=== PATIENT | female | born 1955 | race Caucasian/White ===

== ENCOUNTER 2016-11-15 11:08 | Outpatient (CLI) | payer OTHER ==
[2016-11-15 11:42] LABS: CALCIUM 9.2 mg/dL (8.5-10.3); CREATININE 0.7 mg/dL (0.4-1.0); POTASSIUM 3.9 mmol/L (3.5-5.0)
== END 2016-11-15 11:09 | disposition home or self-care (01) ==
LOC: LAB 11:08
DX: E87.5 Hyperkalemia (principal)
CPT/HCPCS: 36415; 80048

== ENCOUNTER 2017-06-23 08:34 | Outpatient (CLI) | payer OTHER | END 2017-06-23 08:35 | disposition home or self-care (01) | LOC: LAB 08:34 | PROVIDERS: ATTEND Family Medicine | DX: E03.9 Hypothyroidism, unspecified (principal) | CPT/HCPCS: 36415; 84132 ==

== ENCOUNTER 2018-11-30 08:00 | Outpatient (CLI) | payer MEDICARE, OTHER ==
[2018-11-30 11:54] LABS: BASOPHILS % (AUTO) 0.3 %; EOSINOPHILS # (AUTO) 0.1 10^3/uL (0.0-0.7); EOSINOPHILS % (AUTO) 0.8 %; HGB - HEMOGLOBIN 12.5 g/dL (12.0-16.0); LYMPHOCYTES # (AUTO) 1.6 10^3/uL (1.5-3.5); LYMPHOCYTES % (AUTO) 16.4 %; MEAN CORPUSCULAR HEMOGLOBIN 29.2 pg (27.0-31.0); MEAN CORPUSCULAR HGB CONC 31.8 g/dL (32.0-36.0); MEAN CORPUSCULAR VOLUME 91.8 fL (81.0-99.0); MEAN PLATELET VOLUME 10.5 fL (7.9-10.8); MONOCYTES # (AUTO) 0.7 10^3/uL (0.0-1.0); MONOCYTES % (AUTO) 7.6 %; NEUTROPHILS % (AUTO) 74.5 %; PLT - PLATELET COUNT 296 10^3/uL (130-450); RED BLOOD COUNT 4.28 10^6/uL (4.20-5.40); WHITE BLOOD COUNT 9.4 x10^3/uL (4.8-10.8)
[2018-11-30 12:13] LABS: ALBUMIN 3.9 g/dL (3.2-5.5); ALBUMIN/GLOBULIN RATIO 1.3 (1.0-2.2); ALKALINE PHOSPHATASE 46 IU/L (42-121); ALT ALANINE AMINOTRANSFERASE 20 IU/L (10-60); AST ASPARTATE AMINOTRANSFERASE 21 IU/L (10-42); BUN - BLOOD UREA NITROGEN 12 mg/dL (6-20); CALCIUM 8.9 mg/dL (8.5-10.3); CARBON DIOXIDE - CO2 28 mmol/L (21-32); CHLORIDE 99 mmol/L (101-111); CHOL/HDL RATIO 3.6 (<4.4); CHOLESTEROL 211 mg/dL; CREATININE 0.5 mg/dL (0.4-1.0); GFR - MDRD 124 (>89); GLUCOSE 94 mg/dL (70-100); HDL CHOLESTEROL 59 mg/dL; LDL CHOLESTEROL,CALCULATED 135 mg/dL; LDL/HDL RATIO 2.3 (<4.4); SODIUM 135 mmol/L (135-145); TOTAL PROTEIN 6.8 g/dL (6.7-8.2); VLDL CHOLESTEROL 17 mg/dL
[2018-11-30 13:26] LABS: HB2 TOTAL 13.4 g/dL; HEMOGLOBIN A1C 0.52 g/dL; HEMOGLOBIN A1C % 5.7 % (4.6-6.2)
== END 2018-11-30 23:59 | disposition home or self-care (01) ==
LOC: LAB.WCP 08:00
PROVIDERS: ATTEND Physician Assistant
DX: E03.9 Hypothyroidism, unspecified (principal); E78.5 Hyperlipidemia, unspecified; R73.03 Prediabetes; I10 Essential (primary) hypertension
CPT/HCPCS: 36415; 80053; 80061; 83036; 83721; 84443; 85025

== ENCOUNTER 2019-01-01 09:53 | Outpatient (CLI) | payer MEDICARE, OTHER ==
--- NOTE | 2019-01-09 13:22 | Mammography Report ---
Reason: ROUTINE MAMMO Procedure Date: 01/01/2019 Accession Number: [id number] / [id number] Procedure: MGN - Screening Mammo Dig Bilat CPT Code: Final Report FULL RESULT: EXAM: Screening Mammo Dig Bilat DATE: 01/01/2019 10:17 AM CLINICAL HISTORY: The patient is an asymptomatic 63 year-old female presenting for screening mammography. No reported family history of breast cancer. Prior history of a benign right breast excisional biopsy. TECHNIQUE: (B) - Bilateral CC and MLO views were obtained. COMPARISON: None PARENCHYMAL PATTERN: (A) - The breasts demonstrate scattered fibroglandular densities bilaterally. FINDINGS: Nonspecific glandular asymmetry. Postbiopsy changes noted in the 12:00 posterior position. There are no suspicious masses, calcifications, or areas of distortion. IMPRESSION: Benign findings. BI-RADS category 2. RECOMMENDATION: (ANNUAL) - Recommend routine annual screening mammography. Note: An addendum with updated recommendations will be issued if comparison mammograms become available for review. BI-RADS CATEGORY: (2) - Benign Findings. STANDARD QUALIFYING STATEMENTS: 1. This examination was not reviewed with the aid of Computer-Aided Detection (CAD). 2. A negative or benign imaging report should not preclude biopsy if clinically suspicious findings are present. 3. Dense breasts may obscure an underlying neoplasm. 4. This examination was reviewed the aid of 3D breast imaging (tomosynthesis).
== END 2019-01-01 09:54 | disposition home or self-care (01) ==
LOC: DI.N 09:53
DX: Z12.31 Encounter for screening mammogram for malignant neoplasm of breast (principal)
CPT/HCPCS: 77067

== ENCOUNTER 2019-02-03 07:45 | Outpatient (CLI) | payer MEDICARE, OTHER ==
--- NOTE | 2019-02-04 09:11 | Ultrasound Report ---
Reason: ABD PAIN RUQ, LUQ Procedure Date: 02/03/2019 Accession Number: [id number] / [id number] Procedure: US - Abdomen Complete CPT Code: Final Report FULL RESULT: EXAM: ABDOMEN ULTRASOUND EXAM DATE: 02/03/2019 08:16 AM. CLINICAL HISTORY: Abdominal pain right upper quadrant, left lower quadrant. COMPARISON: None. TECHNIQUE: Real-time scanning was performed with static images obtained. FINDINGS: Liver: Liver parenchyma is heterogeneous and mildly hyperechoic. No discrete liver masses or intrahepatic bile duct dilation. However, evaluation for masses is limited secondary to the echogenicity. Right liver measures 13.7 cm. Main portal vein flow: Hepatopetal. Gallbladder: Surgically absent. Biliary System: Common bile duct measures 4 mm. No intrahepatic or extrahepatic ductal dilatation. Pancreas: Distal pancreas not well-seen. Limitations secondary to bowel gas. Remaining pancreas unremarkable. Kidneys: Right: 10.4 cm longitudinally. Normal. No contour-deforming mass, stones, or hydronephrosis. Left: 10.5 cm longitudinally. Normal. No contour-deforming mass, stones, or hydronephrosis. Spleen: 9.2 x 2.6 x 8.6 cm. Normal in size and echotexture. Aorta and Inferior Vena Cava: Unremarkable. Other: None. IMPRESSION: 1. No liver mass or intrahepatic dilation.Mildly echogenic probably fatty liver. 2. Surgically absent gallbladder. Normal common bile duct. 3. Limited visualization of the distal pancreas. Given the limitations, remaining pancreas is grossly unremarkable. RADIA
== END 2019-02-03 07:46 | disposition home or self-care (01) ==
LOC: DI 07:45
PROVIDERS: ATTEND Nurse Practitioner Family
DX: R10.12 Left upper quadrant pain (principal); R10.11 Right upper quadrant pain; Z90.49 Acquired absence of other specified parts of digestive tract
CPT/HCPCS: 76700

== ENCOUNTER 2019-07-17 08:00 | Outpatient (CLI) | payer MEDICARE, OTHER ==
[2019-07-17 12:07] LABS: BASOPHILS % (AUTO) 0.3 %; EOSINOPHILS # (AUTO) 0.1 10^3/uL (0.0-0.7); EOSINOPHILS % (AUTO) 1.3 %; HGB - HEMOGLOBIN 12.6 g/dL (12.0-16.0); LYMPHOCYTES # (AUTO) 1.5 10^3/uL (1.5-3.5); LYMPHOCYTES % (AUTO) 23.5 %; MEAN CORPUSCULAR HEMOGLOBIN 28.6 pg (27.0-31.0); MEAN CORPUSCULAR HGB CONC 31.2 g/dL (32.0-36.0); MEAN CORPUSCULAR VOLUME 91.8 fL (81.0-99.0); MEAN PLATELET VOLUME 11.3 fL (7.9-10.8); MONOCYTES # (AUTO) 0.7 10^3/uL (0.0-1.0); MONOCYTES % (AUTO) 11.5 %; NEUTROPHILS # (AUTO) 3.9 10^3/uL (1.5-6.6); NEUTROPHILS % (AUTO) 63.2 %; PLT - PLATELET COUNT 289 10^3/uL (130-450); RED CELL DISTRIBUTION WIDTH 12.9 % (12.0-15.0); WHITE BLOOD COUNT 6.2 x10^3/uL (4.8-10.8)
[2019-07-17 12:27] LABS: ALBUMIN/GLOBULIN RATIO 1.3 (1.0-2.2); ALKALINE PHOSPHATASE 55 IU/L (42-121); ALT ALANINE AMINOTRANSFERASE 17 IU/L (10-60); AST ASPARTATE AMINOTRANSFERASE 20 IU/L (10-42); BILIRUBIN,TOTAL 1.2 mg/dL (0.2-1.0); BUN - BLOOD UREA NITROGEN 10 mg/dL (6-20); CALCIUM 9.1 mg/dL (8.5-10.3); CARBON DIOXIDE - CO2 26 mmol/L (21-32); CHLORIDE 102 mmol/L (101-111); CHOL/HDL RATIO 3.2 (<4.4); CHOLESTEROL 197 mg/dL; CREATININE 0.5 mg/dL (0.4-1.0); GLUCOSE 91 mg/dL (70-100); HDL CHOLESTEROL 62 mg/dL; LDL CHOLESTEROL,CALCULATED 118 mg/dL; LDL/HDL RATIO 1.9 (<4.4); SODIUM 137 mmol/L (135-145); TOTAL PROTEIN 7.1 g/dL (6.7-8.2); VLDL CHOLESTEROL 17 mg/dL
== END 2019-07-17 23:59 | disposition home or self-care (01) ==
LOC: LAB.WCP 08:00
PROVIDERS: ATTEND Nurse Practitioner Family
DX: E03.9 Hypothyroidism, unspecified (principal); E78.5 Hyperlipidemia, unspecified; R03.0 Elevated blood-pressure reading, without diagnosis of hypertension; R73.03 Prediabetes
CPT/HCPCS: 36415; 80053; 80061; 83721; 84443; 85025

== ENCOUNTER 2019-10-09 11:28 | Emergency (ER) | payer MEDICARE, OTHER ==
[2019-10-09] MEDS ORDERED: SODIUM CHLORIDE 0.9% 1,000 ML IV STA (11:43)
[2019-10-09] MEDS ORDERED: ONDANSETRON 4 MG/2 ML VIAL IVP STA (11:43)
[2019-10-09 11:57] LABS: BASOPHILS % (AUTO) 0.2 %; EOSINOPHILS % (AUTO) 0.2 %; HGB - HEMOGLOBIN 13.2 g/dL (12.0-16.0); LYMPHOCYTES % (AUTO) 11.9 %; MEAN CORPUSCULAR HEMOGLOBIN 30.3 pg (27.0-31.0); MEAN CORPUSCULAR HGB CONC 34.1 g/dL (32.0-36.0); MEAN CORPUSCULAR VOLUME 88.8 fL (81.0-99.0); MEAN PLATELET VOLUME 10.2 fL (7.9-10.8); MONOCYTES # (AUTO) 0.4 10^3/uL (0.0-1.0); MONOCYTES % (AUTO) 4.5 %; NEUTROPHILS # (AUTO) 7.2 10^3/uL (1.5-6.6); NEUTROPHILS % (AUTO) 82.7 %; PLT - PLATELET COUNT 280 10^3/uL (130-450); RED BLOOD COUNT 4.36 10^6/uL (4.20-5.40); RED CELL DISTRIBUTION WIDTH 12.5 % (12.0-15.0); WHITE BLOOD COUNT 8.7 x10^3/uL (4.8-10.8)
[2019-10-09] MEDS ORDERED: MECLIZINE 12.5 MG TABLET PO STA (12:06)
--- NOTE | 2019-10-09 12:11 | ED Physician Documentation ---
History of Present Illness - Stated complaint Stated Complaint: DIZZY/NAUSEA/DRY HEAVES - Chief complaint Chief Complaint: Neuro - History of Present Illness Timing: Prior to arrival, How many hours ago (5) - Additonal information Additional information: 63-year-old female presents to the emergency department for evaluation of vertigo and nausea. She reports that this morning she got up to do her normal morning workout on the treadmill. Shortly after she finished the workout she bent over to massage her calf as she had developed a cramp andimmediately became very dizzy (sensation of head spinning) and was nauseated and has had multiple episodes of dry heaves and vomiting since then. She denies any chest pain or shortness of breath. She denies any slurred speech facial droop. She is able to make the dizziness occur when turning her head to the right. She denies any recent sick contacts or illness. Patient denies any tinnitus or unilateral hearing loss. She denies any neck pain. Patient reports that the dizziness feels like the room is spinning. It typically lasts a few seconds to less than a minute but it is associated with pretty significant nausea. Patient reports that she did have vertigo many years ago that was worked up [facility] and was ultimately negative for any concerning findings She denies any abdominal pain, chest pain, dysuria. Past surgical history includes surgery for a bowel obstruction, a Roberto procedure for acid reflux. Social; non-smoker rare occasional alcohol. Meds omeprazole, Inderal, Review of Systems Constitutional: denies: Fever, Chills Eyes: denies: Loss of vision, Decreased vision, Photophobia Ears: denies: Loss of hearing, Drainage/discharge, Tinnitus/ringing, Foreign body Nose: denies: Rhinorrhea / runny nose, Congestion Throat: denies: Oral lesions / sores, Sore throat Cardiac: denies: Chest pain / pressure, Palpitations Respiratory: denies: Dyspnea, Cough GI: reports: Nausea, Vomiting. 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 : None HEENT: Chronic vision loss Psych: None Musculoskeletal: Other Derm: None - Past Surgical History Past Surgical History: 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: Hysterectomy, Oophrectomy - Present Medications Home Medications: Ambulatory Orders Medication Instructions Recorded Confirmed Ascorbic Acid [Vitamin C] 1,000 mg PO DAILY 06/26/15 07/04/15 Calcium Carbonate/Vitamin D3 1 each PO DAILY 06/26/15 07/04/15 [Calcium 500 + Vit D Caplet] Cetirizine [ZyrTEC] 10 mg PO DAILY 06/26/15 06/26/15 Cyanocobalamin (Vitamin B-12) 2,500 mcg PO DAILY 06/26/15 07/04/15 [Vitamin B12] Fluticasone Propionate [Flonase 15.8 ml NS DAILY 06/26/15 07/04/15 Allergy Relief] Ibuprofen [Motrin] 800 mg PO Q8H PRN 06/26/15 06/26/15 Levothyroxine [Synthroid] 125 mcg PO QDAC 06/26/15 07/04/15 Magnesium 250 mg PO DAILY 06/26/15 07/04/15 Multivitamin [Multivitamins] 1 each PO DAILY 06/26/15 07/04/15 Brunswick-3 Fatty Acids [Fish Oil] 300 mg PO DAILY 06/26/15 07/04/15 Omeprazole 40 mg PO DAILY 06/26/15 07/04/15 Propranolol ER [Inderal LA] 80 mg PO BID 06/26/15 07/04/15 Psyllium Husk [Metamucil] 425 gm PO DAILY 06/26/15 07/04/15 Sumatriptan Succinate [Imitrex] 50 mg PO DAILY 06/26/15 07/04/15 - Allergies Allergies/Adverse Reactions: Allergies Allergy/AdvReac Type Severity Reaction Status Date / Time guaifenesin [From Entex LA] Allergy Respiratory Verified 06/26/15 12:07 phenylephrine HCl * Allergy Respiratory Verified 06/26/15 12:07 [From Entex LA] phenylpropanolamine HCl * Allergy Respiratory Verified 06/26/15 12:07 [From Entex LA] Sulfa (Sulfonamide Allergy Respiratory Verified 06/26/15 12:07 Antibiotics) - Social History Does the pt smoke?: No Smoking Status: Never smoker Does the pt drink ETOH?: No Does the pt have substance abuse?: No - Immunizations Immunizations are current?: Yes PD ED PE EXPANDED - General General: Alert, No acute distress, Well developed/nourished - HEENT HEENT: Atraumatic, PERRL, EOMI, Ears normal (No TM effusions.), Other (Unable to induce any nystagmus in either the vertical or lateral positions). No: Pupils unequal - Eyes Eyes: PERRL, Normal accommodation - Neck Neck: Supple w/out meningeal sx, No tenderness - Cardiac Cardiac: Regular Rate, Regular Rhythm, Radial strong equal, Pedal strong equal, Cap refill < 2 sec. No: Murmur Present - Respiratory Respiratory: Clear to ausultation stephanie. No: Distress, Labored, Stridor - Abdomen Abdomen: Hyperactive BS. No: Tender to palpation - Back Back: Normal exam. No: Vertebral tenderness - Derm Derm: Normal color, Warm and dry, Pale. No: Rash - Neuro Neuro: Alert and Oriented X 3, CNII-XII intact, PERRL, Cerebellar nl, Normal gait, Normal finger nose, Normal speech. No: Nystagmus - GCS Eye Opening: Spontaneous Motor: Obeys Commands Verbal: Oriented Total: 15 Results - Vitals Vitals: Vital Signs - 24 hr 10/09/19 11:30 Temperature 36.6 C Heart Rate 59 L Respiratory 12 Rate Blood Pressure 174/68 H O2 Saturation 100 Oxygen O2 Source Room air - EKG (time done) 1204 Rate: Rate (enter#) (56) Rhythm: NSR T[place]en: Normal Intervals: Normal NM QRS: Normal Ischemia: Normal ST segments Compare to prior EKG: Old EKG unavailable Computer interpretation: Agree with computer - Labs Labs: Laboratory Tests 10/09/19 10/09/19 10/09/19 11:47 11:47 11:47 WBC 8.7 RBC 4.36 Hgb 13.2 Hct 38.7 MCV 88.8 MCH 30.3 MCHC 34.1 RDW 12.5 Plt Count 280 MPV 10.2 Neut # (Auto) 7.2 H Lymph # (Auto) 1.0 L Cloud # (Auto) 0.4 Eos # (Auto) 0.0 Baso # (Auto) 0.0 Absolute Nucleated RBC 0.00 Nucleated RBC % 0.0 Sodium 130 L Potassium 4.2 Chloride 95 L Carbon Dioxide 25 Anion Gap 10.0 BUN 9 Creatinine 0.5 Estimated GFR (MDRD) 124 Glucose 131 H Calcium 9.2 Total Bilirubin 1.1 H AST 20 ALT 18 Alkaline Phosphatase 57 Troponin I High Sens 5.6 Total Protein 7.0 Albumin 4.1 Globulin 2.9 Albumin/Globulin Ratio 1.4 Lipase 33 Urine Color Urine Clarity Urine pH Ur Specific [place] Urine Protein Urine Glucose (UA) Urine Ketones Urine Occult Blood Urine Nitrite Urine Bilirubin Urine Urobilinogen Ur Leukocyte Esterase Ur Microscopic Review Urine Culture Comments 10/09/19 12:52 WBC RBC Hgb Hct MCV MCH MCHC RDW Plt Count MPV Neut # (Auto) Lymph # (Auto) Cloud # (Auto) Eos # (Auto) Baso # (Auto) Absolute Nucleated RBC Nucleated RBC % Sodium Potassium Chloride Carbon Dioxide Anion Gap BUN Creatinine Estimated GFR (MDRD) Glucose Calcium Total Bilirubin AST ALT Alkaline Phosphatase Troponin I High Sens Total Protein Albumin Globulin Albumin/Globulin Ratio Lipase Urine Color YELLOW Urine Clarity CLEAR Urine pH 6.0 Ur Specific [place] <=1.005 Urine Protein NEGATIVE Urine Glucose (UA) NEGATIVE Urine Ketones TRACE Urine Occult Blood NEGATIVE Urine Nitrite NEGATIVE Urine Bilirubin NEGATIVE Urine Urobilinogen 0.2 (NORMAL) Ur Leukocyte Esterase NEGATIVE Ur Microscopic Review NOT INDICATED Urine Culture Comments NOT INDICATED PD MEDICAL DECISION MAKING - ED course Complexity details: reviewed results, re-evaluated patient, considered differential, d/w patient ED course: 63-year-old female presents to the emergency department for for evaluation of acute onset vertigo and nausea. - This vertigo certainly seems very positional will and is fatigable. I was able to induce the vertigo with rotation of her head to the right. The sensation lasted perhaps 10 seconds before it fully abated. My suspicion for a central etiology is very low. She has no nystagmus her cerebellar exam is normal and she does not have a pre-existing history of hypertension, coronary artery disease nor she had tobacco user. - This current episode of vertigo occurred when she bent over after feeling a cramp in her leg. On laboratory exam it should be noted that she is mildly hyponatremic with a serum sodium of 130 mEq/L. Today in the emergency department she was given 1 full liter of normal saline. This should correct her serum sodium closer to 135. Patient does report to me that she drinks a lot of water in an effort to make sure that she is well-hydrated and as a consequence pees "all day long" This may be contributing to her hyponatremia. - her urine today showed no sign of infection. The urine osm is noted to be low - Her ECG is sins. non ischemic. High sensitivity troponin is negative. - I have advised pt to have very close f/u with her pcp in the next 3-4 days for sodium recheck. Emergent return precautions discussed for worsening vertigo, muscle cramps or uncontrolled vomiting Departure - Departure Disposition: Home, Self Care Clinical Impression: Vertigo, Hyponatremia Condition: Stable Record reviewed to determine appropriate education?: Yes Instructions: ED Hyponatremia, ED Vertigo Unspecified Follow-Up: Evette Pendleton PA [Primary Care Provider] - Comments: I hope you are feeling better soon. The labs today show that you are mildly hypnatremic (130 mg/dl). This is likely contributing to you vertigo and the muscle cramps you had this morning. You were given IVF here in the ED that should correct your sodium to a normal level. However you should see your primary doctor in follow up and your labs should be repeated in 3-4 days. Excessive water intake (in an attempt to stay hydrated) can be a cause of your lower sodium levels. I advise that you reduce your water intake to no more mares 2 liters of water a day. IF at any point your cramps return, your dizziness worsens, you have uncontrolled vomiting, please return to the emergency department
[2019-10-09 12:21] LABS: ALBUMIN 4.1 g/dL (3.2-5.5); ALBUMIN/GLOBULIN RATIO 1.4 (1.0-2.2); BILIRUBIN,TOTAL 1.1 mg/dL (0.2-1.0); CALCIUM 9.2 mg/dL (8.5-10.3); CREATININE 0.5 mg/dL (0.4-1.0)
[2019-10-09 13:27] LABS: BILIRUBIN,URINE NEGATIVE (NEGATIVE); GLUCOSE, URINE (UA) NEGATIVE (NEGATIVE); KETONES,URINE (UA) TRACE mg/dL (NEGATIVE); LEUKOCYTE ESTERASE, URINE NEGATIVE (NEGATIVE); NITRITE,URINE NEGATIVE (NEGATIVE); OCCULT BLOOD,URINE NEGATIVE (NEGATIVE); PROTEIN,URINE NEGATIVE (NEGATIVE); UROBILINOGEN,URINE 0.2 (NORMAL) E.U./dL (NORMAL)
[2019-10-09 13:28] LABS: CLARITY,URINE CLEAR (CLEAR)
[2019-10-09 13:51] VITALS: BP 125/55
== END 2019-10-09 13:51 | disposition home or self-care (01) ==
LOC: ED 11:28
DX: R42 Dizziness and giddiness (principal); E87.1 Hypo-osmolality and hyponatremia
CPT/HCPCS: 36415; 80053; 81003; 83690; 84484; 85025; 93005; 96361; 96374; 99283; 99284; A9270; 81001; 87086

== ENCOUNTER 2019-10-16 07:02 | Outpatient (CLI) | payer MEDICARE, OTHER ==
[2019-10-16 12:29] LABS: CALCIUM 9.1 mg/dL (8.5-10.3); CREATININE 0.6 mg/dL (0.4-1.0)
== END 2019-10-16 07:03 | disposition home or self-care (01) ==
LOC: LAB.WCP 07:02
PROVIDERS: ATTEND Family Medicine
DX: E87.1 Hypo-osmolality and hyponatremia (principal); H53.9 Unspecified visual disturbance
CPT/HCPCS: 36415; 80048; 85651; 86140

== ENCOUNTER 2019-12-17 10:02 | Outpatient (CLI) | payer MEDICARE, OTHER ==
--- NOTE | 2019-12-19 16:33 | Mammography Report ---
BILATERAL DIGITAL SCREENING MAMMOGRAM 3D/2D: 12/17/2019 CLINICAL: Routine screening. Routine screening. Comparison is made to exams dated: 01/01/2019 mammogram - [facility] and mammogram - [facility]. There are scattered fibroglandular elements in both breasts . No significant masses, calcifications, or other findings are seen in either breast. There has been no significant interval change. IMPRESSION: NEGATIVE There is no mammographic evidence of malignancy. A 1 year screening mammogram is recommended. This exam was interpreted at Station ID: [id number]. NOTE: For mammograms, a report in lay terms will be sent to the patient. Approximately 15% of breast malignancies will not be visualized mammographically. In the management of a palpable breast mass, a negative mammogram must not discourage biopsy of a clinically suspicious lesion. Electronically Signed By: Antony [email or web address]:12/18/2019 16:09:56 ACR BI-RADS Category 1: Negative 3341F PARENCHYMAL PATTERN: (A) - The breast(s) demonstrate(s) scattered fibroglandular densities. BI-RADS CATEGORY: (1) - 1 RECOMMENDATION: (ANNUAL) - Recommend routine annual screening mammography. 20201217 1 year screening LATERALITY: (B)
== END 2019-12-17 10:03 | disposition home or self-care (01) ==
LOC: DI.N 10:02
DX: Z12.31 Encounter for screening mammogram for malignant neoplasm of breast (principal)
CPT/HCPCS: 77063; 77067

== ENCOUNTER → 2019-12-28 | Outpatient (CLI) | payer MEDICARE, OTHER ==
[2019-12-28 16:03] LABS: CALCIUM 9.3 mg/dL (8.5-10.3); CREATININE 0.6 mg/dL (0.4-1.0)
== END ==
LOC: LAB.N 11:35
PROVIDERS: ATTEND Family Medicine
DX: R30.0 Dysuria (principal)
CPT/HCPCS: 80048

== ENCOUNTER 2020-01-18 08:00 | Outpatient (CLI) | payer MEDICARE, OTHER ==
[2020-01-18 18:05] LABS: BASOPHILS % (AUTO) 0.3 %; EOSINOPHILS % (AUTO) 0.5 %; HGB - HEMOGLOBIN 12.5 g/dL (12.0-16.0); LYMPHOCYTES # (AUTO) 1.6 10^3/uL (1.5-3.5); MEAN CORPUSCULAR HEMOGLOBIN 29.3 pg (27.0-31.0); MEAN CORPUSCULAR HGB CONC 31.2 g/dL (32.0-36.0); MEAN CORPUSCULAR VOLUME 93.9 fL (81.0-99.0); MEAN PLATELET VOLUME 11.2 fL (7.9-10.8); MONOCYTES # (AUTO) 0.8 10^3/uL (0.0-1.0); MONOCYTES % (AUTO) 12.1 %; NEUTROPHILS % (AUTO) 61.9 %; PLT - PLATELET COUNT 293 10^3/uL (130-450); RED BLOOD COUNT 4.27 10^6/uL (4.20-5.40); RED CELL DISTRIBUTION WIDTH 12.9 % (12.0-15.0); WHITE BLOOD COUNT 6.5 x10^3/uL (4.8-10.8)
[2020-01-18 19:01] LABS: ALBUMIN 4.1 g/dL (3.2-5.5); ALBUMIN/GLOBULIN RATIO 1.3 (1.0-2.2); ALKALINE PHOSPHATASE 49 IU/L (42-121); ALT ALANINE AMINOTRANSFERASE 15 IU/L (10-60); AST ASPARTATE AMINOTRANSFERASE 17 IU/L (10-42); BILIRUBIN,TOTAL 0.8 mg/dL (0.2-1.0); BUN - BLOOD UREA NITROGEN 9 mg/dL (6-20); CALCIUM 9.4 mg/dL (8.5-10.3); CARBON DIOXIDE - CO2 28 mmol/L (21-32); CHLORIDE 104 mmol/L (101-111); CHOL/HDL RATIO 3.5 (<4.4); CHOLESTEROL 184 mg/dL; CREATININE 0.5 mg/dL (0.4-1.0); GLUCOSE 85 mg/dL (70-100); HDL CHOLESTEROL 53 mg/dL; LDL CHOLESTEROL,CALCULATED 117 mg/dL; LDL/HDL RATIO 2.2 (<4.4); SODIUM 141 mmol/L (135-145); TOTAL PROTEIN 7.2 g/dL (6.7-8.2); VLDL CHOLESTEROL 14 mg/dL
[2020-01-18 19:31] LABS: HEMOGLOBIN A1c% 5.5 % (4.27-6.07)
[2020-01-18 19:52] LABS: FREE T4 (FREE THYROXINE) 1.75 ng/dL (0.58-1.64)
== END 2020-01-18 23:59 | disposition home or self-care (01) ==
LOC: LAB.WCP 08:00
PROVIDERS: ATTEND Physician Assistant
DX: E87.1 Hypo-osmolality and hyponatremia (principal); R73.03 Prediabetes; E78.5 Hyperlipidemia, unspecified; E03.9 Hypothyroidism, unspecified
CPT/HCPCS: 36415; 80053; 80061; 83036; 83721; 84439; 84443; 85025

== ENCOUNTER 2020-02-14 10:04 | Outpatient (CLI) | payer MEDICARE, OTHER | END 2020-02-14 10:05 | disposition home or self-care (01) | LOC: LAB 10:04 | PROVIDERS: ATTEND Physician Assistant | DX: Z01.812 Encounter for preprocedural laboratory examination (principal); Z20.828 Contact with and (suspected) exposure to other viral communicable diseases | CPT/HCPCS: 86769 ==

== ENCOUNTER 2020-02-19 09:44 | Outpatient (CLI) | payer MEDICARE, OTHER ==
[2020-02-19 15:26] LABS: FREE T4 (FREE THYROXINE) 2.37 ng/dL (0.58-1.64)
== END 2020-02-19 23:59 | disposition home or self-care (01) ==
LOC: LAB.WCP 09:44
PROVIDERS: ATTEND Physician Assistant
DX: E03.9 Hypothyroidism, unspecified (principal)
CPT/HCPCS: 36415; 84439; 84443

== ENCOUNTER 2020-03-21 | Outpatient (CLI) | payer MEDICARE, OTHER | END 2020-03-21 08:11 | disposition home or self-care (01) | CPT/HCPCS: 94010; 94729 ==

== ENCOUNTER 2020-03-21 08:08 | Outpatient (CLI) | payer MEDICARE, OTHER ==
--- NOTE | 2020-03-21 09:05 | DEXA Report ---
PROCEDURE: Dexa Spine and/or Hip INDICATIONS: POST MENOPAUSAL TECHNIQUE: Dual energy x-ray absorptiometry (DXA) was performed on a [employer] System. Regions measur ed are the AP Spine, femoral neck, and if needed forearm. COMPARISON: None. FINDINGS: Lumbar Spine: Bone Mineral Density 1.104 g/cm/cm,T score -0.6, Left Hip: Bone Mineral Density 0.71 to g/cm/cm,T score -2.3, Left Femoral Neck: Bone Mineral Density 0.695 g/cm/cm, T score -2.5, (T score greater or equal to -1.0: NORMAL) (T score from -1.1 to -2.4: OSTEOPENIA) (T score less than or equal to -2.5 to: OSTEOPOROSIS) Impression: Osteoporosis. Patients with diagnosis of osteoporosis or osteopenia should have regular bone mineral density assess ment. For those eligible for Medicare, routine testing is allowed once every 2 years. Testing frequ ency can be increased for patients who have rapidly progressing disease or for those who are receivin g medical therapy to restore bone mass. Reviewed by: Juan C Escalera MD on 03/21/2020 8:04 AM [place] Approved by: Juan C Escalera MD on 03/21/2020 8:04 AM [facility] Station ID: [id number]
== END 2020-03-21 08:09 | disposition home or self-care (01) ==
LOC: DI 08:08
PROVIDERS: ATTEND Internal Medicine
DX: M81.0 Age-related osteoporosis without current pathological fracture (principal); Z78.0 Asymptomatic menopausal state; J38.3 Other diseases of vocal cords; R05 Cough
CPT/HCPCS: 94010; 94729

== ENCOUNTER 2020-04-07 07:11 | Outpatient (CLI) | payer MEDICARE, OTHER ==
[2020-04-07 12:43] LABS: THYROID STIMULATING HORMONE < 0.08 uIU/mL (0.34-5.60)
[2020-04-07 12:45] LABS: FREE T3 3.07 pg/mL (2.5-3.9); FREE T4 (FREE THYROXINE) 1.51 ng/dL (0.58-1.64)
[2020-04-09 15:51] LABS: THYROGLOBULIN 2.5 ng/mL
== END 2020-04-07 23:59 | disposition home or self-care (01) ==
LOC: LAB.WCP 07:11
PROVIDERS: ATTEND Internal Medicine
DX: R94.6 Abnormal results of thyroid function studies (principal)
CPT/HCPCS: 36415; 81599; 83520; 84432; 84439; 84443; 84481; 86800

== ENCOUNTER 2020-06-30 08:00 | Outpatient (CLI) | payer MEDICARE, OTHER ==
[2020-06-30 19:08] LABS: THYROID STIMULATING HORMONE 0.6 uIU/mL (0.34-5.60)
[2020-06-30 19:10] LABS: FREE T3 3.04 pg/mL (2.5-3.9); FREE T4 (FREE THYROXINE) 1.14 ng/dL (0.58-1.64)
== END 2020-06-30 23:59 | disposition home or self-care (01) ==
LOC: LAB.WCP 08:00
PROVIDERS: ATTEND Internal Medicine
DX: R94.6 Abnormal results of thyroid function studies (principal)
CPT/HCPCS: 36415; 84439; 84443; 84481

== ENCOUNTER 2020-10-28 08:00 | Outpatient (CLI) | payer MEDICARE, OTHER ==
[2020-10-28 12:50] LABS: THYROID STIMULATING HORMONE 9.39 uIU/mL (0.34-5.60)
[2020-10-28 12:51] LABS: FREE T3 2.81 pg/mL (2.5-3.9)
[2020-10-28 12:52] LABS: FREE T4 (FREE THYROXINE) 1.05 ng/dL (0.58-1.64)
== END 2020-10-28 23:59 | disposition home or self-care (01) ==
LOC: LAB.WCP 08:00
PROVIDERS: ATTEND Internal Medicine
DX: R94.6 Abnormal results of thyroid function studies (principal)
CPT/HCPCS: 36415; 84439; 84443; 84481

== ENCOUNTER 2020-12-17 12:27 | Outpatient (CLI) | payer MEDICARE, OTHER ==
--- NOTE | 2020-12-23 13:48 | Mammography Report ---
BILATERAL DIGITAL SCREENING MAMMOGRAM 3D/2D: 12/17/2020 CLINICAL: Routine screening. Comparison is made to exams dated: 12/17/2019 mammogram, 01/01/2019 mammogram - [facility], 12/30/2017 mammogram - [facility], 12/30/2016 mammogram, 12/23/2015 mammogram, and 12/24/2014 mammogram - [facility]. There are scattered fibroglandular element s in both breasts. No significant masses, calcifications, or other findings are seen in either breast. There has been no significant interval change. IMPRESSION: NEGATIVE There is no mammographic evidence of malignancy. A 1 year screening mammogram is recommended. This exam was interpreted at Station ID: [id number]. NOTE: For mammograms, a report in lay terms will be sent to the patient. Approximately 15% of breast malignancies will not be visualized mammographically. In the management of a palpable breast mass, a negative mammogram must not discourage biopsy of a clinically suspicious lesion. Electronically Signed By: Bryan Phoenix M.D. [email or web address]:12/22/2020 16:20:50 ACR BI-RADS Category 1: Negative 3341F PARENCHYMAL PATTERN: (A) - The breast(s) demonstrate(s) scattered fibroglandular densities. BI-RADS CATEGORY: (1) - 1 RECOMMENDATION: (ANNUAL) - Recommend routine annual screening mammography. 20211218 1 year screening LATERALITY: (B)
== END 2020-12-17 12:28 | disposition home or self-care (01) ==
LOC: DI.N 12:27
DX: Z12.31 Encounter for screening mammogram for malignant neoplasm of breast (principal)

== ENCOUNTER 2021-01-27 08:00 | Outpatient (CLI) | payer MEDICARE, OTHER ==
[2021-01-27 12:38] LABS: THYROID STIMULATING HORMONE 2.17 uIU/mL (0.34-5.60)
[2021-01-27 12:40] LABS: FREE T4 (FREE THYROXINE) 1.5 ng/dL (0.58-1.64)
== END 2021-01-27 23:59 | disposition home or self-care (01) ==
LOC: LAB.WCP 08:00
PROVIDERS: ATTEND Internal Medicine
DX: E03.9 Hypothyroidism, unspecified (principal)
CPT/HCPCS: 36415; 84439; 84443

== ENCOUNTER 2021-02-23 08:00 | Outpatient (CLI) | payer MEDICARE, OTHER ==
[2021-02-23 11:49] LABS: BASOPHILS % (AUTO) 0.5 %; EOSINOPHILS # (AUTO) 0.1 10^3/uL (0.0-0.7); EOSINOPHILS % (AUTO) 0.9 %; HCT - HEMATOCRIT 41.1 % (37.0-47.0); HGB - HEMOGLOBIN 13.4 g/dL (12.0-16.0); LYMPHOCYTES # (AUTO) 1.7 10^3/uL (1.5-3.5); LYMPHOCYTES % (AUTO) 28.6 %; MEAN CORPUSCULAR HGB CONC 32.6 g/dL (32.0-36.0); MEAN CORPUSCULAR VOLUME 91.9 fL (81.0-99.0); MEAN PLATELET VOLUME 11.1 fL (7.9-10.8); MONOCYTES # (AUTO) 0.6 10^3/uL (0.0-1.0); MONOCYTES % (AUTO) 10.7 %; NEUTROPHILS # (AUTO) 3.4 10^3/uL (1.5-6.6); NEUTROPHILS % (AUTO) 59.1 %; PLT - PLATELET COUNT 267 10^3/uL (130-450); RED BLOOD COUNT 4.47 10^6/uL (4.20-5.40); RED CELL DISTRIBUTION WIDTH 12.7 % (12.0-15.0); WHITE BLOOD COUNT 5.8 x10^3/uL (4.8-10.8)
[2021-02-23 12:10] LABS: CREATININE,URINE 23.2 mg/dL
[2021-02-23 12:15] LABS: MICROALBUMIN,URINE < 0.2 mg/dL (0-300.0)
[2021-02-23 12:17] LABS: ESTIMATED AVERAGE GLUCOSE 111 mg/dL (70-100); HEMOGLOBIN A1c% 5.5 % (4.27-6.07)
[2021-02-23 12:36] LABS: ALBUMIN/GLOBULIN RATIO 1.3 (1.0-2.2); ALKALINE PHOSPHATASE 42 IU/L (42-121); ALT ALANINE AMINOTRANSFERASE 17 IU/L (10-60); AST ASPARTATE AMINOTRANSFERASE 20 IU/L (10-42); BILIRUBIN,TOTAL 0.9 mg/dL (0.2-1.0); BUN - BLOOD UREA NITROGEN 11 mg/dL (6-20); CALCIUM 9.6 mg/dL (8.5-10.3); CARBON DIOXIDE - CO2 28 mmol/L (21-32); CHLORIDE 103 mmol/L (101-111); CHOL/HDL RATIO 3.9 (<4.4); CHOLESTEROL 224 mg/dL; CREATININE 0.6 mg/dL (0.4-1.0); GFR - MDRD 100 (>89); GLUCOSE 101 mg/dL (70-100); HDL CHOLESTEROL 58 mg/dL; LDL CHOLESTEROL,CALCULATED 149 mg/dL; LDL/HDL RATIO 2.6 (<4.4); POTASSIUM 4.2 mmol/L (3.5-5.0); SODIUM 139 mmol/L (135-145); TOTAL PROTEIN 7.1 g/dL (6.7-8.2); TRIGLYCERIDES 84 mg/dL; VLDL CHOLESTEROL 17 mg/dL
[2021-02-23 12:37] LABS: THYROID STIMULATING HORMONE 1.77 uIU/mL (0.34-5.60)
== END 2021-02-23 23:59 | disposition home or self-care (01) ==
LOC: LAB.WCP 08:00
PROVIDERS: ATTEND Internal Medicine
DX: I10 Essential (primary) hypertension (principal); E78.5 Hyperlipidemia, unspecified; R73.03 Prediabetes; E03.9 Hypothyroidism, unspecified
CPT/HCPCS: 36415; 80053; 80061; 82043; 82570; 83036; 83721; 84443; 85025

== ENCOUNTER 2021-08-03 08:22 | Outpatient (CLI) | payer MEDICARE, OTHER ==
[2021-08-03 12:07] LABS: ALBUMIN 3.7 g/dL (3.2-5.5); ALBUMIN/GLOBULIN RATIO 1.2 (1.0-2.2); BILIRUBIN,TOTAL 0.9 mg/dL (0.2-1.0); CALCIUM 8.7 mg/dL (8.5-10.3); CREATININE 0.6 mg/dL (0.4-1.0); POTASSIUM 3.9 mmol/L (3.5-5.0); TOTAL PROTEIN 6.7 g/dL (6.7-8.2)
[2021-08-03 12:21] LABS: THYROID STIMULATING HORMONE 0.12 uIU/mL (0.34-5.60)
[2021-08-03 12:23] LABS: FREE T4 (FREE THYROXINE) 1.33 ng/dL (0.58-1.64)
== END 2021-08-03 08:23 | disposition home or self-care (01) ==
LOC: LAB.N 08:22
PROVIDERS: ATTEND Internal Medicine
DX: E03.9 Hypothyroidism, unspecified (principal); M81.0 Age-related osteoporosis without current pathological fracture
CPT/HCPCS: 36415; 80053; 84100; 84439; 84443

== ENCOUNTER 2021-12-03 06:15 | Outpatient (CLI) | payer MEDICARE, OTHER ==
[2021-12-03 12:43] LABS: CALCIUM 9.3 mg/dL (8.5-10.3); CREATININE 0.5 mg/dL (0.4-1.0); POTASSIUM 4.2 mmol/L (3.5-5.0)
[2021-12-03 12:45] LABS: ESTIMATED AVERAGE GLUCOSE 114 mg/dL (70-100); HEMOGLOBIN A1c% 5.6 % (4.27-6.07)
[2021-12-03 13:11] LABS: THYROID STIMULATING HORMONE 2.96 uIU/mL (0.34-5.60)
[2021-12-03 13:13] LABS: FREE T3 3.07 pg/mL (2.5-3.9)
[2021-12-03 13:14] LABS: FREE T4 (FREE THYROXINE) 1.35 ng/dL (0.58-1.64)
== END 2021-12-03 06:16 | disposition home or self-care (01) ==
LOC: LAB.N 06:15
PROVIDERS: ATTEND Internal Medicine
DX: I10 Essential (primary) hypertension (principal); E03.9 Hypothyroidism, unspecified; R73.03 Prediabetes
CPT/HCPCS: 36415; 80048; 83036; 84439; 84443; 84481

== ENCOUNTER 2021-12-22 09:20 | Outpatient (CLI) | payer MEDICARE, OTHER ==
--- NOTE | 2021-12-23 16:26 | Mammography Report ---
BILATERAL DIGITAL SCREENING MAMMOGRAM 3D/2D: 12/22/2021 CLINICAL: Routine screening. Comparison is made to exams dated: 12/17/2020 mammogram, 12/17/2019 mammogram, 01/01/2019 mammogram - [facility], 12/30/2017 mammogram - [facility], 12/30/2016 mammogram, and 12/23/2015 mammogram - [facility]. Both breasts are almost entirely fatty (category a/<25% glandular tissue). No significant masses, calcifications, or other findings are seen in either breast. There has been no significant interval change. IMPRESSION: NEGATIVE There is no mammographic evidence of malignancy. A 1 year screening mammogram is recommended. Based on the Tyrer Cuzick model (a risk assessment model) the patients lifetime risk is 2.5% and her 10 year risk is 1.4%. According to the ACR, ACS, and NCCN guidelines, an annual breast MRI exam dara g with mammogram is recommended if the patients lifetime risk is 20% or greater. This exam was interpreted at Station ID: [id number]. NOTE: For mammograms, a report in lay terms will be sent to the patient. Approximately 15% of breast malignancies will not be visualized mammographically. In the management of a palpable breast mass, a negative mammogram must not discourage biopsy of a clinically suspicious lesion. Electronically Signed By: Za [email or web address]/marlyn:12/22/2021 17:23:43 ACR BI-RADS Category 1: Negative 3341F PARENCHYMAL PATTERN: (F) - The breast(s) demonstrate(s) diffuse fatty replacement. BI-RADS CATEGORY: (1) - 1 RECOMMENDATION: (ANNUAL) - Recommend routine annual screening mammography. 20221223 1 year screening LATERALITY: (B)
== END 2021-12-22 09:21 | disposition home or self-care (01) ==
LOC: DI.N 09:20
DX: Z12.31 Encounter for screening mammogram for malignant neoplasm of breast (principal)

== ENCOUNTER 2022-01-04 09:02 | Outpatient (CLI) | payer MEDICARE, OTHER | END 2022-01-04 09:03 | disposition home or self-care (01) | LOC: LAB.N 09:02 | PROVIDERS: ATTEND Internal Medicine | DX: M81.0 Age-related osteoporosis without current pathological fracture (principal) | CPT/HCPCS: 36415; 80053 ==

== ENCOUNTER 2022-05-31 07:36 | Outpatient (CLI) | payer MEDICARE, OTHER ==
[2022-05-31 12:52] LABS: CALCIUM 9.4 mg/dL (8.5-10.3); CREATININE 0.6 mg/dL (0.4-1.0); POTASSIUM 4.1 mmol/L (3.5-5.0)
[2022-05-31 13:10] LABS: THYROID STIMULATING HORMONE 2.19 uIU/mL (0.34-5.60)
[2022-05-31 13:30] LABS: CREATININE,URINE 28.5 mg/dL
[2022-06-01 15:08] LABS: OSMOLALITY 294 mOsmol/kg (280-301); OSMOLALITY URINE 168 mOsmol/kg (.)
== END 2022-05-31 07:37 | disposition home or self-care (01) ==
LOC: LAB.N 07:36
PROVIDERS: ATTEND Internal Medicine
DX: E87.1 Hypo-osmolality and hyponatremia (principal)
CPT/HCPCS: 36415; 80048; 82533; 82570; 83930; 83935; 84300; 84443

== ENCOUNTER 2022-06-22 09:34 | Emergency (ER) | payer MEDICARE, OTHER ==
--- NOTE | 2022-06-22 10:04 | ED Physician Documentation ---
History of Present Illness - Stated complaint Stated Complaint: CHEST PX - Chief complaint Chief Complaint: Cardiac - Additonal information Additional information: Patient 66-year-old female presenting to the emergency department chief compl aint chest pain. ReportsChest pain that is associated with exertion ongoing since last Tuesday. States this happens whenever she gets on her treadmill and begins her regular exercises. Reports that she recently had her medications changed, states that she went off of a daily metoprolol that she takes for migraines and was started on flecainide by her primary care doctor. Reports history of hypertension, prediabetes and dyslipidemia. Denies any previous stress tests or echocardiograms in the last 5 years. Is currently symptom-free. Review of Systems Constitutional: denies: Fever Eyes: denies: Loss of vision Ears: denies: Loss of hearing Nose: denies: Rhinorrhea / runny nose Throat: denies: Dental pain / toothache Cardiac: reports: Chest pain / pressure Respiratory: denies: Dyspnea GI: denies: Abdominal Pain : denies: Dysuria PD PAST MEDICAL HISTORY - Past Medical History Cardiovascular: None Respiratory: None Neuro: None Endocrine/Autoimmune: HyPOthyroidism GI: GERD [employer]: None : None HEENT: Chronic vision loss Psych: None Musculoskeletal: Other Derm: None - Past Surgical History Past Surgical History: Yes /[employer]: Hysterectomy, Oophrectomy - Present Medications Home Medications: Ambulatory Orders Medication Instructions Recorded Confirmed Ascorbic Acid [Vitamin C] 1,000 mg PO DAILY 06/26/15 06/22/22 Calcium Carbonate/Vitamin D3 1 each PO DAILY 06/26/15 06/22/22 [Calcium 500 + Vit D Caplet] Cetirizine [ZyrTEC] 10 mg PO DAILY 06/26/15 06/22/22 Cyanocobalamin (Vitamin B-12) 2,500 mcg PO DAILY 06/26/15 06/22/22 [Vitamin B12] Fluticasone Propionate [Flonase 15.8 ml NS DAILY 06/26/15 06/22/22 Allergy Relief] Ibuprofen [Motrin] 800 mg PO Q8H PRN 06/26/15 06/22/22 Levothyroxine [Synthroid] 125 mcg PO QDAC 06/26/15 06/22/22 Magnesium 250 mg PO DAILY 06/26/15 06/22/22 Multivitamin [Multivitamins] 1 each PO DAILY 06/26/15 06/22/22 [place]-3 Fatty Acids [Fish Oil] 300 mg PO DAILY 06/26/15 06/22/22 Omeprazole 40 mg PO DAILY 06/26/15 06/22/22 Psyllium Husk [Metamucil] 425 gm PO DAILY 06/26/15 06/22/22 Sumatriptan Succinate [Imitrex] 50 mg PO DAILY 06/26/15 06/22/22 Felodipine [Felodipine ER] 5 mg PO DAILY 06/22/22 06/22/22 - Allergies Allergies/Adverse Reactions: Allergies Allergy/AdvReac Type Severity Reaction Status Date / Time guaifenesin [From Entex LA] Allergy Respiratory Verified 06/22/22 09:39 phenylephrine HCl * Allergy Respiratory Verified 06/22/22 09:39 [From Entex LA] phenylpropanolamine HCl * Allergy Respiratory Verified 06/22/22 09:39 [From Entex LA] Sulfa (Sulfonamide Allergy Respiratory Verified 06/22/22 09:39 Antibiotics) - Social History Does the pt smoke?: No Smoking Status: Never smoker Does the pt drink ETOH?: No Does the pt have substance abuse?: No - Immunizations Immunizations are current?: Yes PD ED PE NORMAL - General General: Alert and oriented X 3 - HEENT HEENT: Atraumatic - Neck Neck: Supple, no meningeal sign - Cardiac Cardiac: RRR - Respiratory Respiratory: No respiratory distress - Abdomen Abdomen: Normal bowel sounds - Female Female : Deferred - Derm Derm: Normal color - Extremities Extremities: No deformity - Neuro Neuro: Alert and oriented X 3, elderly companion 2-12 intact, No motor deficit, No sensory deficit, Normal speech Results - Vitals Vitals: Oxygen O2 Source Room air - EKG (time done) 0949 EKG releavant findings:: EKG personally interpreted by author of this note. Relevant findings are: Sinus rhythm with rate 73 bpm. Normal axis. Normal MS, QRS, QTc intervals. No ST segment elevations or T wave inversions. No significant change in care in comparison to previous 10/09/2019. - Labs Labs: Laboratory Tests 06/22/22 06/22/22 06/22/22 10:05 10:05 10:05 WBC 9.2 RBC 4.41 Hgb 13.0 Hct 40.0 MCV 90.7 MCH 29.5 MCHC 32.5 RDW 12.4 Plt Count 300 MPV 9.6 Neut # (Auto) 6.8 H Lymph # (Auto) 1.7 Evangeline # (Auto) 0.7 Eos # (Auto) 0.1 Baso # (Auto) 0.0 Absolute Nucleated RBC 0.00 Nucleated RBC % 0.0 Sodium 133 L Potassium 3.5 Chloride 98 L Carbon Dioxide 25 Anion Gap 10.0 BUN 12 Creatinine 0.5 Estimated GFR (MDRD) 123 Glucose 159 H Calcium 9.2 Total Bilirubin 0.7 AST 26 ALT 20 Alkaline Phosphatase 41 L Troponin I High Sens 20.2 H* Total Protein 7.3 Albumin 4.0 Globulin 3.3 Albumin/Globulin Ratio 1.2 Lipase 44 06/22/22 11:58 WBC RBC Hgb Hct MCV MCH MCHC RDW Plt Count MPV Neut # (Auto) Lymph # (Auto) Evangeline # (Auto) Eos # (Auto) Baso # (Auto) Absolute Nucleated RBC Nucleated RBC % Sodium Potassium Chloride Carbon Dioxide Anion Gap BUN Creatinine Estimated GFR (MDRD) Glucose Calcium Total Bilirubin AST ALT Alkaline Phosphatase Troponin I High Sens 27.1 H* Total Protein Albumin Globulin Albumin/Globulin Ratio Lipase PD Medical Decision Making - ED course Complexity details: reviewed results, re-evaluated patient, d/w office 365 consultant ED course: Patient is 66-year-old female presenting to the emergency department with chief complaint of chest pain. Reports has been having intermittent episodes of chest pain that occur when she works out on her treadmill for greater than the last week. Afebrile, he medically stable on arrival to the emergency department. EKG is outlined above negative for indications of acute cardiac ischemia or dysrhythmia. Patient's high-sensitivity troponin however was initially 20.2, with uptrend to 27.1. Overall her presentation is highly concerning for exertional ischemic chest pain. She was given a dose of aspirin in the emergency department. She remained asymptomatic while in the emergency department. Her care was discussed with Dr. Koch, cardiology at [facility] as well as with the hospitalist service at that facility. She will be transferred from our facility to [facility] for further evaluation and treatment. Departure - Departure Disposition: 02 Transfer Acute Care Hosp Clinical Impression: NSTEMI (non-ST elevated myocardial infarction) Discharge Date/Time: 06/22/22 14:15
[2022-06-22 10:08] LABS: BASOPHILS % (AUTO) 0.3 %; EOSINOPHILS # (AUTO) 0.1 10^3/uL (0.0-0.7); EOSINOPHILS % (AUTO) 0.5 %; LYMPHOCYTES # (AUTO) 1.7 10^3/uL (1.5-3.5); LYMPHOCYTES % (AUTO) 18.3 %; MEAN CORPUSCULAR HEMOGLOBIN 29.5 pg (27.0-31.0); MEAN CORPUSCULAR HGB CONC 32.5 g/dL (32.0-36.0); MEAN CORPUSCULAR VOLUME 90.7 fL (81.0-99.0); MEAN PLATELET VOLUME 9.6 fL (7.9-10.8); MONOCYTES # (AUTO) 0.7 10^3/uL (0.0-1.0); MONOCYTES % (AUTO) 7.2 %; NEUTROPHILS # (AUTO) 6.8 10^3/uL (1.5-6.6); NEUTROPHILS % (AUTO) 73.5 %; PLT - PLATELET COUNT 300 10^3/uL (130-450); RED BLOOD COUNT 4.41 10^6/uL (4.20-5.40); RED CELL DISTRIBUTION WIDTH 12.4 % (12.0-15.0); WHITE BLOOD COUNT 9.2 x10^3/uL (4.8-10.8)
--- NOTE | 2022-06-22 10:20 | XRAY Report ---
PROCEDURE: Chest 1 View X-Ray INDICATIONS: Chest Pain TECHNIQUE: One view of the chest was acquired. COMPARISON: None. FINDINGS: Surgical changes and devices: None. Lungs and pleura: No pleural effusions or pneumothorax. Lungs are clear. Mediastinum: Mediastinal contours appear normal. Heart size is normal. Bones and chest wall: No suspicious bony lesions. Overlying soft tissues appear unremarkable. IMPRESSION: No acute process. Reviewed by: Gracie Peoples MD on 06/22/2022 10:19 AM PDT Approved by: Gracie Peoples MD on 06/22/2022 10:19 AM PDT Station ID: [id number]
[2022-06-22 10:54] LABS: ALBUMIN/GLOBULIN RATIO 1.2 (1.0-2.2); BILIRUBIN,TOTAL 0.7 mg/dL (0.2-1.0); CALCIUM 9.2 mg/dL (8.5-10.3); CREATININE 0.5 mg/dL (0.4-1.0); POTASSIUM 3.5 mmol/L (3.5-5.0); TOTAL PROTEIN 7.3 g/dL (6.7-8.2)
[2022-06-22] MEDS ORDERED: ASPIRIN 325 MG TABLET PO STA (10:55)
[2022-06-22 12:33] VITALS: BP 146/56
== END 2022-06-22 14:15 | disposition short-term general hospital (02) ==
LOC: ED 09:34
DX: I21.4 Non-ST elevation (NSTEMI) myocardial infarction (principal); E03.9 Hypothyroidism, unspecified; I10 Essential (primary) hypertension; E78.5 Hyperlipidemia, unspecified; R73.03 Prediabetes; Z79.899 Other long term (current) drug therapy
CPT/HCPCS: 36415; 71045; 80053; 83690; 84484; 85025; 93005; 99285; A9270

== ENCOUNTER 2022-06-25 21:35 | Outpatient (CLI) | payer MEDICARE, OTHER | END 2022-06-25 21:36 | disposition short-term general hospital (02) | LOC: EMS 21:35 | PROVIDERS: ATTEND Emergency Medicine | DX: I20.0 Unstable angina (principal) | CPT/HCPCS: A0425; A0426 ==

== ENCOUNTER 2022-08-10 07:06 | Outpatient (CLI) | payer MEDICARE, OTHER ==
[2022-08-10 12:14] LABS: ALBUMIN 4.2 g/dL (3.2-5.5); ALBUMIN/GLOBULIN RATIO 1.3 (1.0-2.2); ALKALINE PHOSPHATASE 39 IU/L (42-121); ALT ALANINE AMINOTRANSFERASE 23 IU/L (10-60); AST ASPARTATE AMINOTRANSFERASE 26 IU/L (10-42); BILIRUBIN,TOTAL 0.8 mg/dL (0.2-1.0); BUN - BLOOD UREA NITROGEN 10 mg/dL (6-20); CARBON DIOXIDE - CO2 28 mmol/L (21-32); CHLORIDE 106 mmol/L (101-111); CHOL/HDL RATIO 2.4 (<4.4); CHOLESTEROL 147 mg/dL; CREATININE 0.6 mg/dL (0.4-1.0); GFR - MDRD 99 (>89); GLUCOSE 110 mg/dL (70-100); HDL CHOLESTEROL 61 mg/dL; LDL CHOLESTEROL,CALCULATED 67 mg/dL; LDL/HDL RATIO 1.1 (<4.4); POTASSIUM 3.6 mmol/L (3.5-5.0); SODIUM 139 mmol/L (135-145); TOTAL PROTEIN 7.5 g/dL (6.7-8.2); TRIGLYCERIDES 94 mg/dL; VLDL CHOLESTEROL 19 mg/dL
== END 2022-08-10 07:07 | disposition home or self-care (01) ==
LOC: LAB.N 07:06
PROVIDERS: ATTEND Internal Medicine
DX: E78.5 Hyperlipidemia, unspecified (principal)
CPT/HCPCS: 36415; 80053; 80061; 83721

== ENCOUNTER 2022-09-10 09:48 | Outpatient (CLI) | payer MEDICARE, OTHER | END 2022-09-10 09:49 | disposition home or self-care (01) | LOC: LAB.N 09:48 | PROVIDERS: ATTEND Internal Medicine | DX: E03.9 Hypothyroidism, unspecified (principal) | CPT/HCPCS: 36415; 84439; 84443; 84481 ==

== ENCOUNTER 2022-10-28 09:07 | Outpatient (CLI) | payer MEDICARE, OTHER ==
[2022-10-28 12:47] LABS: THYROID STIMULATING HORMONE 0.61 uIU/mL (0.34-5.60)
== END 2022-10-28 09:08 | disposition home or self-care (01) ==
LOC: LAB.N 09:07
PROVIDERS: ATTEND Internal Medicine
DX: E03.9 Hypothyroidism, unspecified (principal)
CPT/HCPCS: 36415; 84443

== ENCOUNTER 2022-12-06 10:08 | Outpatient (CLI) | payer MEDICARE, OTHER ==
--- NOTE | 2022-12-06 10:58 | CT Report ---
PROCEDURE: SINUS SCREENING WO INDICATIONS: SINUS CONGESTION TECHNIQUE: Noncontrast 3.0 mm axial images acquired from the frontal sinuses to the mid-sella, with coronal and sagittal reformats. For radiation dose reduction, the following was used: automated exposure control , adjustment of mA and/or kV according to patient size. COMPARISON: None. FINDINGS: Image quality: Excellent. Maxillary Sinuses: No bony remodeling or destruction. Opacification of the inferior half of the left maxillary sinus. There is periapical lucency surrounding the second and third left maxillary molars with breakthrough into the left maxillary sinus. The right maxillary sinus is clear. Ethmoid Air Cells: No bony remodeling or destruction. Mild mucosal thickening, left greater than rig ht. Sphenoid Sinuses: No bony remodeling or destruction. Sinuses are clear. Frontal Sinuses: No bony remodeling or destruction. Sinuses are clear. Ostiomeatal Complexes: Ostiomeatal complexes are patent. No Lisa cells. Miscellaneous: Visualized intra-orbital contents are normal. Bilateral lens replacements. Left-side d elizabeth bullosa. Minimal rightward nasal septal deviation. IMPRESSION: 1.Left maxillary molar dental disease with breakthrough into the left maxillary sinus resulting in le ft maxillary odontogenic sinusitis. Recommend dental examination. 2.Mild mucosal thickening of the left greater than right ethmoid air cells. Reviewed by: Darrick Little MD on 12/06/2022 10:57 AM PDT Approved by: Darrick Little MD on 12/06/2022 10:57 AM PDT Station ID: [id number]
== END 2022-12-06 10:09 | disposition home or self-care (01) ==
LOC: DI 10:08
PROVIDERS: ATTEND Internal Medicine
DX: R43.8 Other disturbances of smell and taste (principal); J32.0 Chronic maxillary sinusitis; J34.89 Other specified disorders of nose and nasal sinuses

== ENCOUNTER 2022-12-27 08:49 | Outpatient (CLI) | payer MEDICARE, OTHER ==
--- NOTE | 2022-12-27 12:16 | Mammography Report ---
BILATERAL DIGITAL SCREENING MAMMOGRAM 3D/2D: 12/27/2022 CLINICAL: Routine screening. Comparison is made to exams dated: 12/22/2021 mammogram, 12/17/2020 mammogram, 12/17/2019 mammogram, mammogram - [facility], 12/30/2017 mammogram - [facility], and 12/30/2016 mammogram - [facility]. Both breasts are almost entirely fatty (category a/<25% glandular tissue). No significant masses, calcifications, or other findings are seen in either breast. There has been no significant interval change. IMPRESSION: NEGATIVE There is no mammographic evidence of malignancy. A 1 year screening mammogram is recommended. Based on the Tyrer Cuzick model (a risk assessment model) the patients lifetime risk is 2.4% and her 10 year risk is 1.4%. According to the ACR, ACS, and NCCN guidelines, an annual breast MRI exam dara g with mammogram is recommended if the patients lifetime risk is 20% or greater. This exam was interpreted at Station ID: [id number]. NOTE: For mammograms, a report in lay terms will be sent to the patient. Approximately 15% of breast malignancies will not be visualized mammographically. In the management of a palpable breast mass, a negative mammogram must not discourage biopsy of a clinically suspicious lesion. Electronically Signed By: Joao poole/marlyn:12/27/2022 10:13:57 letter sent: No_Letter ACR BI-RADS Category 1: Negative 3341F PARENCHYMAL PATTERN: (F) - The breast(s) demonstrate(s) diffuse fatty replacement. BI-RADS CATEGORY: (1) - 1 Mammogram [id number] 1 year screening LATERALITY: (B)
== END 2022-12-27 08:50 | disposition home or self-care (01) ==
LOC: DI.N 08:49
DX: Z12.31 Encounter for screening mammogram for malignant neoplasm of breast (principal)

== ENCOUNTER 2023-01-19 07:41 | Outpatient (CLI) | payer MEDICARE, OTHER ==
[2023-01-19 12:02] LABS: BASOPHILS % (AUTO) 0.3 %; EOSINOPHILS # (AUTO) 0.1 10^3/uL (0.0-0.7); EOSINOPHILS % (AUTO) 1.1 %; HCT - HEMATOCRIT 41.7 % (37.0-47.0); HGB - HEMOGLOBIN 13.2 g/dL (12.0-16.0); LYMPHOCYTES # (AUTO) 1.3 10^3/uL (1.5-3.5); LYMPHOCYTES % (AUTO) 20.7 %; MEAN CORPUSCULAR HEMOGLOBIN 28.2 pg (27.0-31.0); MEAN CORPUSCULAR HGB CONC 31.7 g/dL (32.0-36.0); MEAN CORPUSCULAR VOLUME 89.1 fL (81.0-99.0); MEAN PLATELET VOLUME 10.8 fL (7.9-10.8); MONOCYTES # (AUTO) 0.7 10^3/uL (0.0-1.0); NEUTROPHILS # (AUTO) 4.1 10^3/uL (1.5-6.6); NEUTROPHILS % (AUTO) 66.6 %; PLT - PLATELET COUNT 286 10^3/uL (130-450); RED BLOOD COUNT 4.68 10^6/uL (4.20-5.40); RED CELL DISTRIBUTION WIDTH 13.4 % (12.0-15.0); WHITE BLOOD COUNT 6.2 x10^3/uL (4.8-10.8)
[2023-01-19 12:03] LABS: ESTIMATED AVERAGE GLUCOSE 111 mg/dL (70-100); HEMOGLOBIN A1c% 5.5 % (4.27-6.07)
[2023-01-19 12:30] LABS: THYROID STIMULATING HORMONE 0.07 uIU/mL (0.34-5.60)
[2023-01-19 12:40] LABS: ALBUMIN 4.3 g/dL (3.2-5.5); ALBUMIN/GLOBULIN RATIO 1.4 (1.0-2.2); ALKALINE PHOSPHATASE 50 IU/L (42-121); ALT ALANINE AMINOTRANSFERASE 12 IU/L (10-60); AST ASPARTATE AMINOTRANSFERASE 16 IU/L (10-42); BILIRUBIN,TOTAL 0.8 mg/dL (0.2-1.0); BUN - BLOOD UREA NITROGEN 6 mg/dL (6-20); CALCIUM 9.7 mg/dL (8.5-10.3); CARBON DIOXIDE - CO2 30 mmol/L (21-32); CHLORIDE 105 mmol/L (101-111); CHOL/HDL RATIO 2.5 (<4.4); CHOLESTEROL 142 mg/dL; CREATININE 0.5 mg/dL (0.6-1.3); GFR - MDRD 122 (>89); GLUCOSE 106 mg/dL (74-104); HDL CHOLESTEROL 57 mg/dL; LDL CHOLESTEROL,CALCULATED 70 mg/dL; LDL/HDL RATIO 1.2 (<4.4); SODIUM 139 mmol/L (135-145); TOTAL PROTEIN 7.4 g/dL (6.4-8.9); TRIGLYCERIDES 73 mg/dL (48-352); VLDL CHOLESTEROL 15 mg/dL
== END 2023-01-19 07:42 | disposition home or self-care (01) ==
LOC: LAB.N 07:41
PROVIDERS: ATTEND Internal Medicine
DX: E03.9 Hypothyroidism, unspecified (principal); I10 Essential (primary) hypertension; E78.5 Hyperlipidemia, unspecified; R73.03 Prediabetes
CPT/HCPCS: 36415; 80053; 80061; 83036; 83721; 84439; 84443; 85025

== ENCOUNTER 2023-03-30 08:52 | Outpatient (CLI) | payer MEDICARE, OTHER ==
[2023-03-30 12:47] LABS: THYROID STIMULATING HORMONE 0.29 uIU/mL (0.34-5.60)
== END 2023-03-30 08:53 | disposition home or self-care (01) ==
LOC: LAB.N 08:52
PROVIDERS: ATTEND Internal Medicine
DX: E03.9 Hypothyroidism, unspecified (principal)
CPT/HCPCS: 36415; 84439; 84443; 84481

== ENCOUNTER 2023-05-11 08:48 | Outpatient (CLI) | payer MEDICARE, OTHER ==
[2023-05-11 11:55] LABS: BASOPHILS % (AUTO) 0.3 %; EOSINOPHILS % (AUTO) 0.6 %; HGB - HEMOGLOBIN 13.7 g/dL (12.0-16.0); LYMPHOCYTES # (AUTO) 1.2 10^3/uL (1.5-3.5); LYMPHOCYTES % (AUTO) 18.1 %; MEAN CORPUSCULAR HEMOGLOBIN 28.8 pg (27.0-31.0); MEAN CORPUSCULAR HGB CONC 32.6 g/dL (32.0-36.0); MEAN CORPUSCULAR VOLUME 88.2 fL (81.0-99.0); MONOCYTES # (AUTO) 0.5 10^3/uL (0.0-1.0); NEUTROPHILS # (AUTO) 4.7 10^3/uL (1.5-6.6); NEUTROPHILS % (AUTO) 72.8 %; PLT - PLATELET COUNT 274 10^3/uL (130-450); RED BLOOD COUNT 4.76 10^6/uL (4.20-5.40); RED CELL DISTRIBUTION WIDTH 12.8 % (12.0-15.0); WHITE BLOOD COUNT 6.5 x10^3/uL (4.8-10.8)
[2023-05-11 12:40] LABS: CRP - C-REACTIVE PROTEIN < 0.5 mg/dL (<0.5)
[2023-05-11 12:53] LABS: THYROID STIMULATING HORMONE 2.89 uIU/mL (0.34-5.60)
== END 2023-05-11 08:49 | disposition home or self-care (01) ==
LOC: LAB.N 08:48
PROVIDERS: ATTEND Internal Medicine
DX: E03.9 Hypothyroidism, unspecified (principal); M25.519 Pain in unspecified shoulder
CPT/HCPCS: 36415; 84439; 84443; 84481; 85025; 85651; 86140

== ENCOUNTER 2023-07-28 15:55 | Outpatient (CLI) | payer MEDICARE, OTHER ==
[2023-07-28 22:03] LABS: THYROID STIMULATING HORMONE 4.04 uIU/mL (0.34-5.60)
== END 2023-07-28 18:11 | disposition home or self-care (01) ==
LOC: LAB.N 15:55
PROVIDERS: ATTEND Physician Assistant Medical
DX: R94.6 Abnormal results of thyroid function studies (principal)
CPT/HCPCS: 36415; 84439; 84443; 84481

== ENCOUNTER 2023-09-19 07:15 | Outpatient (CLI) | payer MEDICARE, OTHER ==
[2023-09-19 12:59] LABS: ALBUMIN 4.6 g/dL (3.2-5.5); ALBUMIN/GLOBULIN RATIO 1.7 (1.0-2.2); ALKALINE PHOSPHATASE 54 IU/L (42-121); ALT ALANINE AMINOTRANSFERASE 21 IU/L (10-60); AST ASPARTATE AMINOTRANSFERASE 21 IU/L (10-42); BILIRUBIN,TOTAL 0.9 mg/dL (0.2-1.0); BUN - BLOOD UREA NITROGEN 7 mg/dL (6-20); CALCIUM 9.9 mg/dL (8.5-10.3); CARBON DIOXIDE - CO2 31 mmol/L (21-32); CHLORIDE 103 mmol/L (101-111); CHOL/HDL RATIO 2.3 (<4.4); CHOLESTEROL 142 mg/dL; CREATININE 0.5 mg/dL (0.6-1.3); GFR - MDRD 122 (>89); GLUCOSE 108 mg/dL (74-104); HDL CHOLESTEROL 62 mg/dL; LDL CHOLESTEROL,CALCULATED 67 mg/dL; LDL/HDL RATIO 1.1 (<4.4); POTASSIUM 3.7 mmol/L (3.5-4.5); SODIUM 138 mmol/L (135-145); TOTAL PROTEIN 7.3 g/dL (6.4-8.9); TRIGLYCERIDES 65 mg/dL; VLDL CHOLESTEROL 13 mg/dL
[2023-09-19 14:29] LABS: THYROID STIMULATING HORMONE 0.86 uIU/mL (0.34-5.60)
== END 2023-09-19 07:16 | disposition home or self-care (01) ==
LOC: LAB.N 07:15
PROVIDERS: ATTEND Internal Medicine
DX: E03.9 Hypothyroidism, unspecified (principal); E78.5 Hyperlipidemia, unspecified
CPT/HCPCS: 36415; 80053; 80061; 83721; 84439; 84443; 84481